=== PATIENT | female | born 1950 | race Caucasian/White ===

== ENCOUNTER 2021-06-18 09:41 | Outpatient (RCR) | payer BC, SELFPAY ==
[2021-06-18 09:45] VITALS: BP 132/82; PULSE 70; O2SAT 97
--- NOTE | 2021-06-18 11:43 | MHC.PT.EP ---
[facility] [place] Office [place] Office [place] [address] Melina aDwn [address] [phone] F: [phone] F: [phone] F: [phone] F: [phone] Physical Therapy Plan of Care Date of Evaluation: Date of Surgery: Diagnosis: This is a 71 yo female presenting to skilled PT with a script for vertigo Assessment: Patient reports that she had her first vertigo attack on 03/19/2020 when she got out of bed and was dizzy. She saw her PCP and was given meclizine. After 3-4 weeks her symptoms improved on their own. Symptoms returned about a year later on 04/15/21. She experienced the same recovery process but this time attempted self treatment utilizing information online. At [facility] patient has no symptoms but wanted to come in and start a chart/learn exercises incase symptoms return once more. Examination shows normal oculomotor tests, (-) VBI B, decreased cervical AROM but without pain. She was (-) for BPPV with mazin-hallpike and roll test maneuver. She had normal scores on balance tests. Spent time educating her on PT POC, anatomy of inner ear and signs/symptoms. Patient would benefit from PT as needed to address impairments, implement HEP and optimize functional mobility if symptoms return. 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 Manual therapy to restore motion and function. Therapeutic exercise to improve strength and flexibility. Neuromuscular re-education for posture and balance. Therapeutic activities to return to functional activities of daily living. Electronically signed by: Kate Louis PT Please sign and return to therapist. Thank you for your referral.
--- NOTE | 2021-07-20 09:55 | MHC.PT.DC ---
[place] Office [place] Office [place] Office [address] Melina Dwan [address] [phone] F: [phone] F: [phone] F: [phone] F: [phone] Physical Therapy Discharge Report Diagnosis: This is a 71 yo female presenting to skilled PT with a script for vertigo Date of Surgery: Date of Evaluation: 06/18/21 Date of Discharge: 07/20/21 Treatments to Date: 1 Cancellations to Date: 0 No Shows to Date: 0 Discharge Status: Achieved Goals Improved Function Independent with HEP Discharge Summary: Patient reports that she had her first vertigo attack on 03/19/2020 when she got out of bed and was dizzy. She saw her PCP and was given meclizine. After 3-4 weeks her symptoms improved on their own. Symptoms returned about a year later on 04/15/21. She experienced the same recovery process but this time attempted self treatment utilizing information online. At [facility] patient has no symptoms but wanted to come in and start a chart/learn exercises incase symptoms return once more. Examination shows normal oculomotor tests, (-) VBI B, decreased cervical AROM but without pain. She was (-) for BPPV with mazin-hallpike and roll test maneuver. She had normal scores on balance tests. Spent time educating her on PT POC, anatomy of inner ear and signs/symptoms. Patient would benefit from PT as needed to address impairments, implement HEP and optimize functional mobility if symptoms return. Chart was kept open for 30 days and then DC'd Electronically signed by: Kate Louis, PT Please sign and return to therapist. Thank you for your referral.
== END 2021-07-20 09:55 | disposition home or self-care (01) ==
LOC: HO.PTCHIC 09:41
PROVIDERS: Visit Provider Otolaryngology
DX: R42 Dizziness and giddiness (principal)
CPT/HCPCS: 97110; 97162